=== PATIENT | female | born 1950 | race Caucasian/White ===

== ENCOUNTER 2022-04-25 05:14 | Inpatient (IN) | payer MEDICARE ==
[2022-04-25] MEDS ORDERED: Morphine 4 MG/ML VIAL ONE (05:19)
[2022-04-25] MEDS ORDERED: Morphine 2 MG/ML VIAL SLOW IVP PRN (05:21)
[2022-04-25] MEDS ORDERED: Ondansetron PF 4 MG/2 ML Vial IVP PRN (05:29)
[2022-04-25] MEDS ORDERED: Promethazine HCl 25 MG/ML VIAL IM PRN (05:29)
[2022-04-25] MEDS ORDERED: hydrALAZINE 20 MG/ML VIAL SLOW IVP PRN (05:29)
[2022-04-25 05:37] VITALS: BMI 22.5
[2022-04-25] MEDS ORDERED: Acetaminophen 325 MG TAB PO SCH (06:00)
[2022-04-25] MEDS ORDERED: Sodium Chloride 0.9% 1,000 ML IV SCH (06:00)
[2022-04-25 06:17] LABS: #Lymphocytes 0.8 thou/uL (1.20-3.40); #Monocytes 0.7 thou/uL (0.11-0.59); #Neutrophils 13.7 thou/uL (1.40-6.50); %Eosinophils 0.1 % (0.0-10.0); %Lymphocytes 5.6 % (21.0-51.0); %Monocytes 4.4 % (0.0-10.0); %Neutrophils 89.9 % (42.0-75.0); Hemoglobin 9.7 g/dL (12.0-16.0); Mean Corpuscular Hemoglobin 30.8 pg (27.0-31.0); Mean Corpuscular Volume 96.3 fL (78.0-98.0); Mean Platelet Volume 7.8 fL (7.4-10.4); Platelet Count 175 thou/uL (130-400); RBC Distribution Width 12.4 % (11.5-14.5); Red Blood Cell (RBC) Count 3.16 mill/uL (4.20-5.40); White Blood Cell (WBC) Count 15.2 thou/uL (4.8-10.8)
[2022-04-25 06:36] LABS: INR-International Normal Ratio 1.1; PTT 26.8 sec (22.9-36.1); Prothrombin Time 14.8 sec (12.0-14.7)
[2022-04-25 06:43] LABS: Anion Gap 14 mmol/L (10-20); BUN (Urea Nitrogen) 37 mg/dL (9.8-20.1); Calc. Creatinine Clearance 23 mL/min (70-130); Calcium 8.7 mg/dL (7.8-10.44); Carbon Dioxide 19 mmol/L (23-31); Chloride 113 mmol/L (98-107); Glucose 255 mg/dL (83-110); Phosphorus 3.3 mg/dL (2.3-4.7); Potassium 5.1 mmol/L (3.5-5.1); Sodium 141 mmol/L (136-145)
[2022-04-25] MEDS: Acetaminophen 500 MG TAB PO SCH ×4 (07:16→23:06)
[2022-04-25] MEDS: traMADol HCl 50 MG TAB PO SCH ×2 (07:17→18:22)
[2022-04-25] MEDS ORDERED: Dextrose 5% in Water 1,000 ML IV PRN (07:28)
[2022-04-25] MEDS ORDERED: Dextrose 50% Abboject 50 ML SYRINGE SLOW IVP PRN (07:28)
[2022-04-25] MEDS ORDERED: CEFAZOLIN 2 GM in Sodium Chloride 0.9% 100 ML IVPB SCH (08:00)
[2022-04-25 08:45] LABS: Hemoglobin A1c 6.2 % (4.0-6.0)
[2022-04-25] MEDS ORDERED: Insulin Glargine 30 UNITS/0.3 ML VIAL SC SCH ×2 (09:00→21:00)
[2022-04-25] MEDS: Sodium Chloride 0.9% 1,000 ML IV SCH ×3 (09:40→22:53)
[2022-04-25] MEDS: Amlodipine 10 MG TAB PO SCH (09:42)
[2022-04-25] MEDS: Metoprolol Tartrate 50 MG TAB PO SCH ×2 (09:42→21:44)
[2022-04-25] MEDS: Gabapentin 100 MG CAP PO SCH ×2 (09:44→21:43)
[2022-04-25] MEDS: Polyethylene Glycol 3350 17 GM Packet PO SCH (10:20)
[2022-04-25] MEDS: Senokot S 8.6-50 MG TAB PO SCH ×2 (10:20→21:46)
[2022-04-25] MEDS: Lansoprazole 3 MG/ML ORAL SUSPENSION PO SCH (12:55)
[2022-04-25] MEDS: HumaLOG 300 UNITS/3 ML VIAL SC PRN (12:56)
[2022-04-25] MEDS: Cyclobenzaprine 10 MG TAB PO PRN (16:30)
[2022-04-25 18:10] LABS: Bacteria/HPF 4+ HPF (None Seen); Bilirubin Negative (Negative); Blood, Urine Negative (Negative); Clarity Clear (Clear); Glucose, Urine (Dipstick) 70 mg/dL (Negative); Ketone, Urine Negative (Negative); Leukocyte 250 Leu/uL (Negative); Nitrite Negative (Negative); Protein, Urine (Dipstick) 200 mg/dL (Neg-Trace); RBC/HPF 0-3 HPF (0-3); Specific Gravity, Urine 1.014 (1.002-1.036); Squamous Epithelial 0-3 HPF (0-3); Urobilinogen Normal mg/dL (Less than 2); WBC/HPF 21-50 HPF (0-3)
[2022-04-25 18:12] LABS: Urine Culture Reflex Yes Yes
[2022-04-25] MEDS: traZODone HCl 50 MG TAB PO SCH (21:42)
[2022-04-25] MEDS: Atorvastatin Calcium 40 MG TAB PO SCH (21:42)
[2022-04-25] MEDS: Mirtazapine 15 MG Soltab SL SCH (21:45)
[2022-04-25] MEDS: Insulin Glargine 30 UNITS/0.3 ML VIAL SC SCH (21:48)
[2022-04-26 05:17] LABS: INR-International Normal Ratio 1.2; PTT 36.5 sec (22.9-36.1); Prothrombin Time 14.8 sec (12.0-14.7)
[2022-04-26 05:31] LABS: #Eosinphils 0.3 thou/uL (0.0-0.7); #Lymphocytes 1.6 thou/uL (1.20-3.40); #Monocytes 1.2 thou/uL (0.11-0.59); #Neutrophils 6.3 thou/uL (1.40-6.50); %Basophils 0.3 % (0.0-1.0); %Eosinophils 2.9 % (0.0-10.0); %Lymphocytes 16.9 % (21.0-51.0); %Monocytes 12.7 % (0.0-10.0); %Neutrophils 67.2 % (42.0-75.0); Hemoglobin 8.4 g/dL (12.0-16.0); Mean Corpuscular HGB CONC 31.6 g/dL (32.0-36.0); Mean Corpuscular Hemoglobin 30.8 pg (27.0-31.0); Mean Corpuscular Volume 97.6 fL (78.0-98.0); Platelet Count 167 thou/uL (130-400); RBC Distribution Width 12.7 % (11.5-14.5); Red Blood Cell (RBC) Count 2.74 mill/uL (4.20-5.40); White Blood Cell (WBC) Count 9.4 thou/uL (4.8-10.8)
[2022-04-26 05:34] LABS: Anion Gap 12 mmol/L (10-20); BUN (Urea Nitrogen) 34 mg/dL (9.8-20.1); Calc. Creatinine Clearance 22 mL/min (70-130); Calcium 8.2 mg/dL (7.8-10.44); Carbon Dioxide 21 mmol/L (23-31); Chloride 112 mmol/L (98-107); Glucose 123 mg/dL (83-110); Potassium 5.6 mmol/L (3.5-5.1); Sodium 139 mmol/L (136-145)
[2022-04-26] MEDS: Acetaminophen 500 MG TAB PO SCH ×3 (06:31→18:48)
[2022-04-26] MEDS: traMADol HCl 50 MG TAB PO SCH ×2 (06:32→18:49)
[2022-04-26] MEDS ORDERED: Insulin Regular 300 UNITS/3 ML VIAL SC SCH (06:45)
[2022-04-26] MEDS ORDERED: Dextrose 50% Abboject 50 ML SYRINGE SLOW IVP PRN (06:45)
[2022-04-26] MEDS: Gabapentin 100 MG CAP PO SCH ×2 (09:19→20:41)
[2022-04-26] MEDS: Amlodipine 10 MG TAB PO SCH (09:20)
[2022-04-26] MEDS: Metoprolol Tartrate 50 MG TAB PO SCH ×2 (09:21→20:42)
[2022-04-26] MEDS: Insulin Glargine 30 UNITS/0.3 ML VIAL SC SCH ×2 (09:23→21:13)
[2022-04-26] MEDS: Senokot S 8.6-50 MG TAB PO SCH ×2 (09:24→20:40)
[2022-04-26] MEDS: Polyethylene Glycol 3350 17 GM Packet PO SCH (09:24)
[2022-04-26] MEDS: Lansoprazole 3 MG/ML ORAL SUSPENSION PO SCH (11:28)
[2022-04-26] MEDS: Sodium Chloride 0.9% 1,000 ML IV SCH ×2 (11:29→20:40)
[2022-04-26] MEDS ORDERED: fentaNYL Citrate/PF 100 MCG/2 ML SYRINGE ONE (11:44)
[2022-04-26 11:54] LABS: Hemoglobin 8.6 g/dL (12.0-16.0)
[2022-04-26] MEDS ORDERED: CEFAZOLIN 2 GM VIAL ONE (12:02)
[2022-04-26 12:13] LABS: Anion Gap 13 mmol/L (10-20); BUN (Urea Nitrogen) 32 mg/dL (9.8-20.1); Calc. Creatinine Clearance 22 mL/min (70-130); Calcium 8.5 mg/dL (7.8-10.44); Carbon Dioxide 19 mmol/L (23-31); Chloride 113 mmol/L (98-107); Glucose 85 mg/dL (83-110); Potassium 5.1 mmol/L (3.5-5.1); Sodium 140 mmol/L (136-145)
[2022-04-26] MEDS ORDERED: Rocuronium Bromide 10 MG/ML (10ML VIAL) ONE (12:16)
[2022-04-26] MEDS ORDERED: Lidocaine 1% PF 5 ML VIAL ONE (12:16)
[2022-04-26] MEDS ORDERED: Dexamethasone 20 MG/5 ML VIAL ONE (12:16)
[2022-04-26] MEDS ORDERED: Ondansetron PF 4 MG/2 ML Vial ONE (12:16)
[2022-04-26] MEDS ORDERED: PHENYLEPHRINE-NS 100 MCG/ML 10 ML SYRINGE ONE (12:16)
[2022-04-26] MEDS ORDERED: ePHEDrine 50 MG/ML VIAL ONE (12:16)
[2022-04-26] MEDS ORDERED: ceFAZolin 2 GM/Dextrose 50 ML 2 GM in Premix Bag 1 BAG IVPB SCH (13:00)
[2022-04-26] MEDS ORDERED: SUGAMMADEX SODIUM 200 MG/2 ML VIAL ONE (13:09)
[2022-04-26] MEDS ORDERED: Ondansetron HCl/PF 4 MG/2 ML Vial IVP PRN (13:42)
[2022-04-26] MEDS ORDERED: Promethazine HCl 25 MG/ML VIAL IVPB PRN (13:42)
[2022-04-26] MEDS ORDERED: Promethazine HCl 25 MG/ML VIAL IM PRN (13:42)
[2022-04-26] MEDS ORDERED: Fentanyl 100 MCG/2 ML VIAL ONE (13:50)
[2022-04-26] MEDS ORDERED: Ferrous Sulfate 325 MG TAB PO SCH (17:00)
[2022-04-26] MEDS: Ferrous Sulfate 325 MG TAB PO SCH (18:51)
[2022-04-26] MEDS ORDERED: Nitroglycerin 0.4 MG TAB (25 Tab Bottle) SL PRN (19:29)
[2022-04-26] MEDS ORDERED: Furosemide 40 MG TAB PO PRN (19:29)
[2022-04-26] MEDS: CEFAZOLIN 2 GM in Sodium Chloride 0.9% 100 ML IVPB SCH (20:39)
[2022-04-26] MEDS: Atorvastatin Calcium 40 MG TAB PO SCH (20:40)
[2022-04-26] MEDS: Ascorbic Acid 500 mg Chewable Tablet PO SCH (20:41)
[2022-04-26] MEDS: Mirtazapine 15 MG Soltab SL SCH (20:42)
[2022-04-26] MEDS: traZODone HCl 50 MG TAB PO SCH (20:42)
[2022-04-26] MEDS: Cyclobenzaprine 10 MG TAB PO PRN (20:55)
[2022-04-26] MEDS ORDERED: Ascorbic Acid 500 mg Chewable Tablet PO SCH (21:00)
[2022-04-27] MEDS: Acetaminophen 500 MG TAB PO SCH ×5 (00:02→23:56)
[2022-04-27] MEDS: CEFAZOLIN 2 GM in Sodium Chloride 0.9% 100 ML IVPB SCH (04:28)
[2022-04-27] MEDS: traMADol HCl 50 MG TAB PO SCH ×2 (05:29→17:25)
[2022-04-27 05:42] LABS: #Monocytes 1.5 thou/uL (0.11-0.59); #Neutrophils 9.5 thou/uL (1.40-6.50); %Basophils 0.1 % (0.0-1.0); %Eosinophils 0.1 % (0.0-10.0); %Lymphocytes 8.4 % (21.0-51.0); %Monocytes 12.3 % (0.0-10.0); %Neutrophils 79.1 % (42.0-75.0); Hemoglobin 8.7 g/dL (12.0-16.0); Mean Corpuscular HGB CONC 32.9 g/dL (32.0-36.0); Mean Corpuscular Hemoglobin 31.7 pg (27.0-31.0); Mean Corpuscular Volume 96.2 fL (78.0-98.0); Mean Platelet Volume 7.9 fL (7.4-10.4); Platelet Count 157 thou/uL (130-400); RBC Distribution Width 12.5 % (11.5-14.5); Red Blood Cell (RBC) Count 2.75 mill/uL (4.20-5.40)
[2022-04-27 05:58] LABS: Anion Gap 13 mmol/L (10-20); BUN (Urea Nitrogen) 35 mg/dL (9.8-20.1); Calc. Creatinine Clearance 21 mL/min (70-130); Calcium 8.2 mg/dL (7.8-10.44); Carbon Dioxide 18 mmol/L (23-31); Chloride 111 mmol/L (98-107); Glucose 283 mg/dL (83-110); Magnesium 1.8 mg/dL (1.6-2.6); Phosphorus 4.6 mg/dL (2.3-4.7); Potassium 5.9 mmol/L (3.5-5.1); Sodium 136 mmol/L (136-145)
[2022-04-27] MEDS: HumaLOG 300 UNITS/3 ML VIAL SC PRN ×3 (06:17→23:55)
[2022-04-27] MEDS: Gabapentin 100 MG CAP PO SCH ×2 (09:12→21:07)
[2022-04-27] MEDS: Ascorbic Acid 500 mg Chewable Tablet PO SCH ×2 (09:12→21:06)
[2022-04-27] MEDS: Cyclobenzaprine 10 MG TAB PO PRN (09:12)
[2022-04-27] MEDS: cefTRIAXone\\ROCEPHIN 1 GM in Sodium Chloride 0.9% 100 ML IVPB SCH (09:13)
[2022-04-27] MEDS: Insulin Glargine 30 UNITS/0.3 ML VIAL SC SCH ×2 (09:13→21:08)
[2022-04-27] MEDS: Senokot S 8.6-50 MG TAB PO SCH ×2 (09:13→21:07)
[2022-04-27] MEDS: Ferrous Sulfate 325 MG TAB PO SCH ×2 (09:13→17:24)
[2022-04-27] MEDS: Metoprolol Tartrate 50 MG TAB PO SCH ×2 (09:13→21:08)
[2022-04-27] MEDS: Polyethylene Glycol 3350 17 GM Packet PO SCH (09:13)
[2022-04-27] MEDS: Amlodipine 10 MG TAB PO SCH (09:13)
[2022-04-27] MEDS: Lansoprazole 3 MG/ML ORAL SUSPENSION PO SCH (09:14)
[2022-04-27] MEDS ORDERED: Melatonin 3 MG TAB PO PRN (13:41)
[2022-04-27] MEDS: Heparin 5,000 UNITS/ML VIAL SC SCH ×2 (14:16→21:09)
[2022-04-27 17:43] LABS: Anion Gap 13 mmol/L (10-20); BUN (Urea Nitrogen) 36 mg/dL (9.8-20.1); Calc. Creatinine Clearance 22 mL/min (70-130); Calcium 8.4 mg/dL (7.8-10.44); Carbon Dioxide 19 mmol/L (23-31); Chloride 112 mmol/L (98-107); Glucose 291 mg/dL (83-110); Sodium 139 mmol/L (136-145)
[2022-04-27] MEDS: Atorvastatin Calcium 40 MG TAB PO SCH (21:06)
[2022-04-27] MEDS: traZODone HCl 50 MG TAB PO SCH (21:07)
[2022-04-27] MEDS: Mirtazapine 15 MG Soltab SL SCH (21:08)
[2022-04-28] MEDS: HumaLOG 300 UNITS/3 ML VIAL SC PRN ×2 (05:32→16:46)
[2022-04-28] MEDS: Acetaminophen 500 MG TAB PO SCH ×4 (05:32→23:58)
[2022-04-28] MEDS: traMADol HCl 50 MG TAB PO SCH ×2 (05:32→16:44)
[2022-04-28] MEDS: Amlodipine 10 MG TAB PO SCH (09:27)
[2022-04-28] MEDS: Ferrous Sulfate 325 MG TAB PO SCH ×2 (09:29→16:42)
[2022-04-28] MEDS: Metoprolol Tartrate 50 MG TAB PO SCH ×2 (09:29→20:06)
[2022-04-28] MEDS: Senokot S 8.6-50 MG TAB PO SCH ×2 (09:29→20:04)
[2022-04-28] MEDS: Ascorbic Acid 500 mg Chewable Tablet PO SCH ×2 (09:29→20:04)
[2022-04-28] MEDS: Gabapentin 100 MG CAP PO SCH ×2 (09:29→20:05)
[2022-04-28] MEDS: Heparin 5,000 UNITS/ML VIAL SC SCH ×3 (09:30→20:05)
[2022-04-28] MEDS: Polyethylene Glycol 3350 17 GM Packet PO SCH (09:30)
[2022-04-28] MEDS: cefTRIAXone\\ROCEPHIN 1 GM in Sodium Chloride 0.9% 100 ML IVPB SCH (09:44)
[2022-04-28] MEDS: Insulin Glargine 30 UNITS/0.3 ML VIAL SC SCH ×2 (09:50→20:06)
[2022-04-28] MEDS: Lansoprazole 3 MG/ML ORAL SUSPENSION PO SCH ×2 (11:37→12:44)
[2022-04-28] MEDS: Atorvastatin Calcium 40 MG TAB PO SCH (20:05)
[2022-04-28] MEDS: Mirtazapine 15 MG Soltab SL SCH (20:06)
[2022-04-28] MEDS: cloNIDine 0.1 MG TAB PO SCH (20:06)
[2022-04-28] MEDS: traZODone HCl 50 MG TAB PO SCH (20:06)
[2022-04-29] MEDS: traMADol HCl 50 MG TAB PO SCH ×2 (03:54→16:00)
[2022-04-29] MEDS: HumaLOG 300 UNITS/3 ML VIAL SC PRN ×2 (05:36→16:00)
[2022-04-29] MEDS: Acetaminophen 500 MG TAB PO SCH ×3 (05:36→19:20)
[2022-04-29] MEDS: Ascorbic Acid 500 mg Chewable Tablet PO SCH ×2 (09:26→20:19)
[2022-04-29] MEDS: Heparin 5,000 UNITS/ML VIAL SC SCH ×3 (09:26→20:20)
[2022-04-29] MEDS: cloNIDine 0.1 MG TAB PO SCH ×2 (09:26→20:20)
[2022-04-29] MEDS: Ferrous Sulfate 325 MG TAB PO SCH ×2 (09:27→16:45)
[2022-04-29] MEDS: Metoprolol Tartrate 50 MG TAB PO SCH ×2 (09:27→20:20)
[2022-04-29] MEDS: Amlodipine 10 MG TAB PO SCH (09:27)
[2022-04-29] MEDS: Gabapentin 100 MG CAP PO SCH ×3 (09:27→20:20)
[2022-04-29] MEDS: Senokot S 8.6-50 MG TAB PO SCH ×2 (09:28→20:20)
[2022-04-29] MEDS: Polyethylene Glycol 3350 17 GM Packet PO SCH (09:29)
[2022-04-29] MEDS: Insulin Glargine 30 UNITS/0.3 ML VIAL SC SCH ×2 (09:48→20:19)
[2022-04-29] MEDS: cefTRIAXone\\ROCEPHIN 1 GM in Sodium Chloride 0.9% 100 ML IVPB SCH (09:48)
[2022-04-29 12:58] LABS: #Eosinphils 0.3 thou/uL (0.0-0.7); #Lymphocytes 1.5 thou/uL (1.20-3.40); #Monocytes 1.1 thou/uL (0.11-0.59); #Neutrophils 6.1 thou/uL (1.40-6.50); %Basophils 0.5 % (0.0-1.0); %Eosinophils 3.5 % (0.0-10.0); %Lymphocytes 16.6 % (21.0-51.0); %Monocytes 11.8 % (0.0-10.0); %Neutrophils 67.6 % (42.0-75.0); Hemoglobin 8.8 g/dL (12.0-16.0); Mean Corpuscular HGB CONC 32.4 g/dL (32.0-36.0); Mean Corpuscular Hemoglobin 31.7 pg (27.0-31.0); Mean Corpuscular Volume 97.9 fL (78.0-98.0); Mean Platelet Volume 8.1 fL (7.4-10.4); Platelet Count 179 thou/uL (130-400); RBC Distribution Width 12.7 % (11.5-14.5); Red Blood Cell (RBC) Count 2.77 mill/uL (4.20-5.40)
[2022-04-29] MEDS: Atorvastatin Calcium 40 MG TAB PO SCH (20:19)
[2022-04-29] MEDS: traZODone HCl 50 MG TAB PO SCH (20:20)
[2022-04-29] MEDS: Mirtazapine 15 MG Soltab SL SCH (20:21)
[2022-04-30] MEDS: Acetaminophen 500 MG TAB PO SCH ×5 (00:22→23:38)
[2022-04-30] MEDS: traMADol HCl 50 MG TAB PO SCH ×2 (05:13→17:57)
[2022-04-30] MEDS: Lansoprazole 3 MG/ML ORAL SUSPENSION PO SCH (08:25)
[2022-04-30] MEDS: cefTRIAXone\\ROCEPHIN 1 GM in Sodium Chloride 0.9% 100 ML IVPB SCH (08:27)
[2022-04-30] MEDS: Polyethylene Glycol 3350 17 GM Packet PO SCH (08:28)
[2022-04-30] MEDS: Amlodipine 10 MG TAB PO SCH (08:28)
[2022-04-30] MEDS: Senokot S 8.6-50 MG TAB PO SCH ×2 (08:28→20:59)
[2022-04-30] MEDS: cloNIDine 0.1 MG TAB PO SCH ×2 (08:28→20:58)
[2022-04-30] MEDS: Ascorbic Acid 500 mg Chewable Tablet PO SCH ×2 (08:28→20:57)
[2022-04-30] MEDS: Ferrous Sulfate 325 MG TAB PO SCH ×3 (08:28→20:58)
[2022-04-30] MEDS: Metoprolol Tartrate 50 MG TAB PO SCH ×2 (08:29→20:58)
[2022-04-30] MEDS: Gabapentin 100 MG CAP PO SCH ×3 (08:29→20:58)
[2022-04-30] MEDS: Insulin Glargine 30 UNITS/0.3 ML VIAL SC SCH ×2 (08:29→20:59)
[2022-04-30] MEDS: Heparin 5,000 UNITS/ML VIAL SC SCH ×3 (08:30→20:59)
[2022-04-30] MEDS: HumaLOG 300 UNITS/3 ML VIAL SC PRN ×2 (11:37→21:00)
[2022-04-30] MEDS: Bisacodyl 10 MG SUPP PR SCH ×2 (16:48→20:59)
[2022-04-30] MEDS: traZODone HCl 50 MG TAB PO SCH (20:58)
[2022-04-30] MEDS: Mirtazapine 15 MG Soltab SL SCH (20:59)
[2022-04-30] MEDS: Atorvastatin Calcium 40 MG TAB PO SCH (20:59)
[2022-04-30] MEDS: Cyclobenzaprine 10 MG TAB PO PRN (21:02)
[2022-05-01] MEDS: traMADol HCl 50 MG TAB PO SCH ×2 (03:30→15:42)
[2022-05-01 05:36] LABS: #Eosinphils 0.4 thou/uL (0.0-0.7); #Lymphocytes 1.3 thou/uL (1.20-3.40); #Neutrophils 7.4 thou/uL (1.40-6.50); %Basophils 0.2 % (0.0-1.0); %Eosinophils 3.8 % (0.0-10.0); %Lymphocytes 12.6 % (21.0-51.0); %Neutrophils 73.5 % (42.0-75.0); Hemoglobin 8.2 g/dL (12.0-16.0); Mean Corpuscular HGB CONC 32.4 g/dL (32.0-36.0); Mean Corpuscular Hemoglobin 31.5 pg (27.0-31.0); Mean Corpuscular Volume 97.4 fL (78.0-98.0); Mean Platelet Volume 7.4 fL (7.4-10.4); Platelet Count 224 thou/uL (130-400); RBC Distribution Width 12.6 % (11.5-14.5)
[2022-05-01] MEDS: Acetaminophen 500 MG TAB PO SCH ×2 (05:39→12:00)
[2022-05-01] MEDS: Bisacodyl 10 MG SUPP PR SCH ×2 (05:39→14:05)
[2022-05-01 05:59] LABS: Anion Gap 15 mmol/L (10-20); BUN (Urea Nitrogen) 36 mg/dL (9.8-20.1); Calc. Creatinine Clearance 28 mL/min (70-130); Calcium 8.5 mg/dL (7.8-10.44); Carbon Dioxide 21 mmol/L (23-31); Chloride 110 mmol/L (98-107); Glucose 99 mg/dL (83-110); Magnesium 1.9 mg/dL (1.6-2.6); Phosphorus 3.9 mg/dL (2.3-4.7); Potassium 4.5 mmol/L (3.5-5.1); Sodium 141 mmol/L (136-145)
[2022-05-01] MEDS ORDERED: Mineral Oil ENEMA PR SCH (08:00)
[2022-05-01] MEDS: cloNIDine 0.1 MG TAB PO SCH (09:38)
[2022-05-01] MEDS: Amlodipine 10 MG TAB PO SCH (09:38)
[2022-05-01] MEDS: Gabapentin 100 MG CAP PO SCH ×2 (09:39→15:42)
[2022-05-01] MEDS: Metoprolol Tartrate 50 MG TAB PO SCH (09:39)
[2022-05-01] MEDS: Polyethylene Glycol 3350 17 GM Packet PO SCH (09:40)
[2022-05-01] MEDS: Senokot S 8.6-50 MG TAB PO SCH (09:40)
[2022-05-01] MEDS: Ascorbic Acid 500 mg Chewable Tablet PO SCH (09:40)
[2022-05-01] MEDS: Ferrous Sulfate 325 MG TAB PO SCH (09:40)
[2022-05-01] MEDS: Insulin Glargine 30 UNITS/0.3 ML VIAL SC SCH (09:41)
[2022-05-01] MEDS: Heparin 5,000 UNITS/ML VIAL SC SCH (09:47)
[2022-05-01 16:24] VITALS: BP 147/66; TEMP 97.7
[2022-05-01] MEDS ORDERED: Apixaban 2.5 MG TAB PO SCH (21:00)
== END 2022-05-01 17:15 | disposition swing bed (61) | DRG 481 ==
LOC: SURG A 05:20
PROVIDERS: ADMIT Surgery; ATTEND Surgery
PROC: 0QSB04Z Reposition Right Lower Femur with Internal Fixation Device, Open Approach (ICD-10-PCS; principal; 2022-04-26)
DX: S72.401A Unspecified fracture of lower end of right femur, initial encounter for closed fracture (principal); S42.201A Unspecified fracture of upper end of right humerus, initial encounter for closed fracture; N17.9 Acute kidney failure, unspecified; N39.0 Urinary tract infection, site not specified; W18.30XA Fall on same level, unspecified, initial encounter; Y92.012 Bathroom of single-family (private) house as the place of occurrence of the external cause; Z20.822 Contact with and (suspected) exposure to COVID-19; I12.9 Hypertensive chronic kidney disease with stage 1 through stage 4 chronic kidney disease, or unspecified chronic kidney disease; K21.9 Gastro-esophageal reflux disease without esophagitis; N18.9 Chronic kidney disease, unspecified; G35 Multiple sclerosis; E78.5 Hyperlipidemia, unspecified; I25.10 Atherosclerotic heart disease of native coronary artery without angina pectoris; Z90.49 Acquired absence of other specified parts of digestive tract; Z79.01 Long term (current) use of anticoagulants; Z90.710 Acquired absence of both cervix and uterus; Z95.5 Presence of coronary angioplasty implant and graft; Z79.899 Other long term (current) drug therapy
CPT/HCPCS: 36415; 36416; 36430; 76000; 80048; 81001; 83036; 83735; 83880; 84100; 85025; 85610; 85730; 86850; 86900; 86901; 87077; 87086; 87186; 94640; C1713; J0360; J0690; J0696; J1100; J1644; J1815; J2270; J2405; J3010; J3490; J7050; J7620; J7999; P9016